=== PATIENT | female | born 1960 | race American Indian/Alaskan Native ===

== ENCOUNTER 2021-03-28 22:29 | Emergency (ER) | payer SELFPAY ==
[2021-03-29 00:04] LABS: Eosinophils # (Auto) 0.1 K/mm3 (0.0-0.4); Eosinophils % (Auto) 1.8 % (0.0-4.3); Hematocrit 34.3 % (30.3-42.9); Hemoglobin 10.8 gm/dl (10.1-14.3); Lymphocytes # (Auto) 1.8 K/mm3 (1.2-5.4); Lymphocytes % (Auto) 48.7 % (13.4-35.0); Mean Corpuscular HGB Conc 32 % (30-34); Mean Corpuscular Volume 83 fl (79-97); Monocytes # (Auto) 0.3 K/mm3 (0.0-0.8); Monocytes % (Auto) 8.5 % (0.0-7.3); Platelet Count 197 K/mm3 (140-440); Red Blood Count 4.13 M/mm3 (3.65-5.03); Red Cell Distribution Width 17.2 % (13.2-15.2)
--- NOTE | 2021-03-29 00:14 | XRay Report ---
CHEST 2 VIEWS INDICATION: weakness. COMPARISON: None. FINDINGS: Support devices: None. Heart: Within normal limits. Lungs/Pleura: No acute air space or interstitial disease. No significant pleural effusion. IMPRESSION: No acute findings. Signer Name: Javier Duarte MD Signed: 03/29/2021 12:10 AM Workstation Name: [id number]
[2021-03-29 00:30] LABS: Alanine Aminotransferase 46 units/L (7-56); Albumin 3.5 g/dL (3.9-5); BUN/Creatinine Ratio 23; Blood Urea Nitrogen 23 mg/dL (7-17); Calcium 8.4 mg/dL (8.4-10.2); Hemolysis Index 9
--- NOTE | 2021-03-29 01:28 | Emergency Department Report ---
ED General Adult HPI - General Chief complaint: Medical Clearance Stated complaint: I have shortness of breath. My left arm hurts. I fell a few days ago. I am homeless. PUI?: No Time Seen by Provider: 03/29/21 00:50 Source: patient, RN notes reviewed Mode of arrival: Ambulatory Limitations: No Limitations - History of Present Illness Initial comments: During the history and physical examination, I am chaperoned by nurse QUENTIN CAMPOS The patient is a 60-year-old female. She is not known to myself previously. She has a history of bariatric surgery, A. fib, supposed to be on Eliquis, lower extremity edema, hypertension, anxiety, and possible bipolar. The patient is unfortunately homeless. She reports that she recently moved here a few months ago from [place]. She reports that she was recently kicked out of her current domicile. She reports that she was recently at [facility], for lower extremity swelling. She reports that she was given "water pill" during IV. She also arrives with a backpack that is full of medicine, a good Rx affordable prescription card, and a referral to the [place] [facility]. The patient complains of generalized dizziness, without ataxia, lower extremity swelling which is chronic, chronic shortness of breath, anxiety, and total body pain. Unfortunately, she does not have anyone close by that she can stay with. She is also not COVID-19 vaccinated. Patient very anxious, but she is not homicidal or suicidal. She is not having hallucinations. She does not have access to guns or firearms. She does not want to overdose on anything. -: Gradual, days(s) Consistency: constant Improves with: none Worsens with: none - Related Data Home Medications Medication Instructions Recorded Confirmed Last Taken Acetaminophen [Non-Aspirin Extra 03/29/21 03/29/21 Strength] Aspirin [Vazalore] 81 mg PO 03/29/21 03/29/21 Diclofenac 1% [Diclofenac 1% 100 gm TP 03/29/21 03/29/21 topical gel] Esomeprazole Magnesium [NexIUM] 40 mg PO QDAY 03/29/21 03/29/21 03/29/21 Fluticasone 03/29/21 03/29/21 50 mcg Magnesium Oxide 400 03/29/21 03/29/21 400 mg Metoprolol Xl [Metoprolol 100 mg PO QDAY 03/29/21 03/29/21 03/29/21 SUCCINATE ER TAB] Nitroglycerin [Nitrostat] 0.4 mg SL 03/29/21 03/29/21 Pregabalin [Lyrica] 25 mg PO 03/29/21 03/29/21 Sacubitril/Valsartan [Entresto 24 1 each PO 03/29/21 03/29/21 - 26 mg] 51 mg Previous Rx's Medication Instructions Recorded Last Taken Type Apixaban [Eliquis] 5 mg PO BID #60 tablet 03/29/21 Unknown Rx Furosemide [Lasix] 20 mg PO QDAY #30 tablet 03/29/21 Unknown Rx ED Review of Systems ROS: Stated complaint: SOB,HEART ISSUES, LIGHTHEADED,DIZZINESS Other details as noted in HPI Constitutional: denies: fever Eyes: denies: eye discharge Respiratory: shortness of breath, SOB with exertion Cardiovascular: edema. denies: chest pain Gastrointestinal: denies: abdominal pain Genitourinary: denies: dysuria Musculoskeletal: arthralgia, myalgia Neurological: weakness. denies: abnormal gait Psychiatric: anxiety. denies: auditory hallucinations, visual hallucinations, homicidal thoughts, suicidal thoughts ED Past Medical Hx - Past Medical History Previous Medical History?: Yes Hx Hypertension: Yes Hx Congestive Heart Failure: Yes - Surgical History Past Surgical History?: Yes Hx Coronary Stent: Yes Additional Surgical History: cardiac bypass - Medications Home Medications: Home Medications Medication Instructions Recorded Confirmed Last Taken Type Acetaminophen [Non-Aspirin Extra 03/29/21 03/29/21 History Strength] Apixaban [Eliquis] 5 mg PO BID #60 tablet 03/29/21 Unknown Rx Aspirin [Vazalore] 81 mg PO 03/29/21 03/29/21 History Diclofenac 1% [Diclofenac 1% 100 gm TP 03/29/21 03/29/21 History topical gel] Esomeprazole Magnesium [NexIUM] 40 mg PO QDAY 03/29/21 03/29/21 03/29/21 History Fluticasone 03/29/21 03/29/21 History 50 mcg Furosemide [Lasix] 20 mg PO QDAY #30 tablet 03/29/21 Unknown Rx Magnesium Oxide 400 03/29/21 03/29/21 History 400 mg Metoprolol Xl [Metoprolol 100 mg PO QDAY 03/29/21 03/29/21 03/29/21 History SUCCINATE ER TAB] Nitroglycerin [Nitrostat] 0.4 mg SL 03/29/21 03/29/21 History Pregabalin [Lyrica] 25 mg PO 03/29/21 03/29/21 History Sacubitril/Valsartan [Entresto 24 1 each PO 03/29/21 03/29/21 History - 26 mg] 51 mg ED Physical Exam - General Limitations: No Limitations General appearance: alert, anxious - Head Head exam: Present: atraumatic, normocephalic - Eye Eye exam: Present: normal appearance, EOMI. Absent: nystagmus - ENT ENT exam: Present: normal exam, normal orophraynx, mucous membranes moist, normal external ear exam - Neck Neck exam: Present: normal inspection, full ROM. Absent: tenderness, meningismus - Respiratory Respiratory exam: Present: normal lung sounds bilaterally. Absent: respiratory distress, wheezes, rales, rhonchi, stridor, decreased breath sounds - Cardiovascular Cardiovascular Exam: Present: normal rhythm, irregular rhythm, normal heart sounds. Absent: bradycardia, tachycardia, systolic murmur, diastolic murmur, rubs, gallop - GI/Abdominal GI/Abdominal exam: Present: soft. Absent: distended, tenderness, guarding, rebound, rigid, pulsatile mass - Extremities Exam Extremities exam: Present: normal inspection, full ROM, pedal edema (2+ edema in the bilateral lower extremity), other (2+ pulses noted in the bilateral upper and lower extremities. There is no palpable cord. negative Homans sign. Muscular compartments are soft. The pelvis is stable.). Absent: calf tenderness - Back Exam Back exam: Present: normal inspection, full ROM. Absent: tenderness, CVA tenderness (R), CVA tenderness (L), paraspinal tenderness, vertebral tenderness - Neurological Exam Neurological exam: Present: alert, oriented X3, normal gait, other (No facial droop. Tongue midline. Extraocular movements intact bilaterally. Facial sensation intact to light touch in V1, V2, V3 distribution bilaterally. 5 and a 5 strength in 4 extremities. Sensation intact to light touch in 4 extremities.). Absent: motor sensory deficit - Psychiatric Psychiatric exam: Present: anxious. Absent: homicidal ideation, suicidal ideation - Skin Skin exam: Present: warm, dry, intact, normal color, ecchymosis (There is a left upper extremity ecchymosis). Absent: rash ED Course Vital Signs 03/28/21 23:16 Temperature 97.9 F Pulse Rate 83 Respiratory 18 Rate Blood Pressure 113/65 O2 Sat by Pulse 100 Oximetry - Reevaluation(s) Reevaluation #1: 03/29/21 02:31 Differential diagnosis, including but not limited to: Encounter for medical screening examination, encounter for behavioral health screening examination, closed head injury, left arm ecchymosis, dependent edema, CHF, medication refill, generalized body aches Assessment and plan: 60-year-old female, who was afebrile, clinically sober, with a GCS of 15, who walks with a steady gait, who is very anxious but redirectable, who does not meet criteria for 1013 hold or involuntary hold. Chest x-ray clear. Noncontrast CT scan of the brain negative for acute findings. Left upper extremity x-ray negative for acute findings. Laboratory studies nonactionable. Patient sleeping comfortably in stretcher, in no acute distress. She has a good Rx affordable prescription card, her prescriptions with her, and referral to the [place] [facility]. Surprise improved with acetaminophen, she will also be given a rolling walker. We will also give her referrals to outpatient homeless shelters and resources. The patient is not medically decompensated to the point where she would require admission to the hospital. 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 ED Medical Decision Making - Lab Data Result diagrams: 03/28/21 23:42 03/28/21 23:42 Vital Signs 03/28/21 23:16 Temperature 97.9 F Pulse Rate 83 Respiratory 18 Rate Blood Pressure 113/65 O2 Sat by Pulse 100 Oximetry Lab Results 03/28/21 03/28/21 Range/Units 23:42 23:42 WBC 3.7 L (4.5-11.0) K/mm3 RBC 4.13 (3.65-5.03) M/mm3 Hgb 10.8 (10.1-14.3) gm/dl Hct 34.3 (30.3-42.9) % MCV 83 (79-97) fl MCH 26 L (28-32) pg MCHC 32 (30-34) % RDW 17.2 H (13.2-15.2) % Plt Count 197 (140-440) K/mm3 Lymph % (Auto) 48.7 H (13.4-35.0) % Garfield % (Auto) 8.5 H (0.0-7.3) % Eos % (Auto) 1.8 (0.0-4.3) % Baso % (Auto) 1.0 (0.0-1.8) % Lymph # (Auto) 1.8 (1.2-5.4) K/mm3 Garfield # (Auto) 0.3 (0.0-0.8) K/mm3 Eos # (Auto) 0.1 (0.0-0.4) K/mm3 Baso # (Auto) 0.0 (0.0-0.1) K/mm3 Seg Neutrophils % 40.0 (40.0-70.0) % Seg Neutrophils # 1.5 L (1.8-7.7) K/mm3 Sodium 144 (137-145) mmol/L Potassium 4.2 (3.6-5.0) mmol/L Chloride 111.4 H (98-107) mmol/L Carbon Dioxide 22 (22-30) mmol/L Anion Gap 15 mmol/L BUN 23 H (7-17) mg/dL Creatinine 1.0 (0.6-1.2) mg/dL Estimated GFR 57 ml/min BUN/Creatinine Ratio 23 % Glucose 87 (65-100) mg/dL Calcium 8.4 (8.4-10.2) mg/dL Total Bilirubin 0.30 (0.1-1.2) mg/dL AST 40 (5-40) units/L ALT 46 (7-56) units/L Alkaline Phosphatase 164 H (35-129) units/L Troponin T < 0.010 (0.00-0.029) ng/mL NT-Pro-B Natriuret Pep 537.1 (0-900) pg/mL Total Protein 6.9 (6.3-8.2) g/dL Albumin 3.5 L (3.9-5) g/dL Albumin/Globulin Ratio 1.0 % - EKG Data -: EKG Interpreted by Nc - EKG Data 03/29/21 02:31 The EKG is interpreted at 12: 13 A. fib, 70 bpm. Normal axis, normal intervals, left ventricular hypertrophy, abnormal EKG. Not a STEMI - Radiology Data Radiology results: pending, report reviewed, image reviewed LEFT HUMERUS 2 VIEWS INDICATION / CLINICAL INFORMATION: left arm pain echymosis, COMPARISON: None available. FINDINGS: BONES / JOINT(S): No acute fracture or subluxation. No significant arthritis. SOFT TISSUES: No significant abnormality. ADDITIONAL FINDINGS: None. Signer Name: Javier Duarte MD Signed: 03/29/2021 12:57 AM Workstation Name: [id number] CHEST 2 VIEWS INDICATION: weakness. COMPARISON: None. FINDINGS: Support devices: None. Heart: Within normal limits. Lungs/Pleura: No acute air space or interstitial disease. No significant pleural effusion. IMPRESSION: No acute findings. Signer Name: Javier Duarte MD Signed: 03/28/2021 11:10 PM Workstation Name: [id number] CT head without contrast INDICATION : fall on anticoagulation. TECHNIQUE: Axial imaging performed from the skull apex through the skull base without the use of contrast. All CT scans at this location are performed using CT dose reduction for ALARA by means of automated exposure control. COMPARISON: None FINDINGS: Parenchyma: No mass, stroke or hemorrhage. Ventricles: Ventricles are normal in size and appear symmetric. Soft tissues: Soft tissues including the orbits appear normal. Bones: No acute osseous abnormality. Sinuses: Sinuses and mastoid air cells are clear. IMPRESSION: No acute abnormality. Signer Name: Javier Duarte MD Signed: 03/29/2021 1:28 AM Workstation Name: [id number] Critical care attestation.: If time is entered above; I have spent that time in minutes in the direct care of this critically ill patient, excluding procedure time. ED Disposition Clinical Impression: Left arm pain, Lower extremity edema, Atrial fibrillation, Generalized body aches, History of fall, Homelessness Disposition: 01 HOME / SELF CARE / HOMELESS Is pt being admited?: No Does the pt Need Aspirin: No Condition: Good Additional Instructions: Please continue current outpatient medications. Follow-up within the next 3 to 5 days with an outpatient primary care doctor and/or gas combustion engineer. Patient was given a good Rx affordable prescription card, and referral to the [place] [facility] on her recent evaluation at that hospital. Patient may follow-up at that hospital/heart failure clinic, or she may elect to follow-up with a local cardiology groups that have been listed in this paperwork. Consume a low-salt diet, participate in physical activities as tolerated, patient may take [id number] Tylenol and/or acetaminophen as needed for physical pain. Please follow-up with your primary care doctor within the next 3 to 5 days. Please follow-up with a gas combustion engineer within the next 3 to 5 days. Please continue current outpatient medications. Please return to the emergency room right away with new pain, worsened pain, migration of pain, projectile vomiting, change in mental status, confusion, inability tolerate liquid feeds, new, worsened or different symptoms not present on the initial emergency room evaluation. Also recommend that patient take a daily multivitamin [id number] Referrals: [facility] [Outside] - 3-[address] [facility] [Outside] - 3-5 Days [facility] [Provider Group] - 3-5 Days [facility] [Provider Group] - 3-5 Days
--- NOTE | 2021-03-29 02:02 | XRay Report ---
LEFT HUMERUS 2 VIEWS INDICATION / CLINICAL INFORMATION: left arm pain echymosis, COMPARISON: None available. FINDINGS: BONES / JOINT(S): No acute fracture or subluxation. No significant arthritis. SOFT TISSUES: No significant abnormality. ADDITIONAL FINDINGS: None. Signer Name: Javier Duarte MD Signed: 03/29/2021 1:57 AM Workstation Name: [id number]
[2021-03-29] MEDS ORDERED: ACETAMINOPHEN 325 MG TAB PO ONE (02:27)
--- NOTE | 2021-03-29 02:33 | Cat Scan Report ---
CT head without contrast INDICATION : fall on anticoagulation. TECHNIQUE: Axial imaging performed from the skull apex through the skull base without the use of con trast. All CT scans at this location are performed using CT dose reduction for ALARA by means of aut omated exposure control. COMPARISON: None FINDINGS: Parenchyma: No mass, stroke or hemorrhage. Ventricles: Ventricles are normal in size and appear symmetric. Soft tissues: Soft tissues including the orbits appear normal. Bones: No acute osseous abnormality. Sinuses: Sinuses and mastoid air cells are clear. IMPRESSION: No acute abnormality. Signer Name: Javier Duarte MD Signed: 03/29/2021 2:28 AM Workstation Name: [id number]
[2021-03-29] MEDS ORDERED: FUROSEMIDE 20 MG TAB PO ONE (03:27)
[2021-03-29 03:48] VITALS: BP 126/70
--- NOTE | 2021-04-01 10:50 | Electrocardiograph Report ---
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
== END 2021-03-29 03:47 | disposition home or self-care (01) ==
LOC: ED 22:29
DX: M79.602 Pain in left arm (principal); R60.0 Localized edema; I48.91 Unspecified atrial fibrillation; M79.18 Myalgia, other site; Z59.00 Homelessness unspecified; I11.0 Hypertensive heart disease with heart failure; I50.9 Heart failure, unspecified; Z95.1 Presence of aortocoronary bypass graft; Z88.8 Allergy status to other drugs, medicaments and biological substances; Z79.82 Long term (current) use of aspirin; Z79.899 Other long term (current) drug therapy; W18.39XA Other fall on same level, initial encounter; Y93.89 Activity, other specified; Y92.89 Other specified places as the place of occurrence of the external cause; Y99.8 Other external cause status
CPT/HCPCS: 36415; 70450; 71046; 80053; 83880; 84484; 85025; 93005; 99285